=== PATIENT | female | born 1975 | race Caucasian/White ===

== ENCOUNTER 2017-07-27 13:35 | Emergency (ER) | payer OTHER ==
[~2017-07-27 13:35] MED LIST: VENL75 PO; WELL200T PO
[2017-07-27 13:46] VITALS: BP 136/65; PULSE 150; RESP 18; TEMP 98.5; O2SAT 96
--- NOTE | 2017-07-27 14:21 | PD ---
HPI Chief Complaint: Alcohol/Drug Intoxication Time Seen by Provider: 13:51 Travel History International Travel<30 days: No Contact w/Intl Traveler<30days: No Traveled to known affect area: No History of Present Illness HPI The patient is a 42-year-old female who presents emergency department family members for alcohol withdrawal. According to family members the patient has a history of alcohol abuse, has been through rehabilitation several times and has been at [facility] the past several times. Over the last several weeks the patient has been drinking a liter of vodka daily, cannot recall her last intake of alcohol, however, the family states the patient has been "shaky "and somewhat altered. The patient does admit to abusing alcohol, denies any illicit drug use. The patient is requesting Librium for her withdrawal symptoms. She does complain of diffuse abdominal pain with nausea, denies any vomiting. She denies any chest pain, shortness of breath, or fever. Symptoms are moderate. Exacerbated by history of alcohol abuse, and alleviated in the past with Librium. According to family members the patient is allergic to Antabuse, became jaundiced while taking Antabuse in the past. [facility] Past Medical History Depression: Yes Diminished Hearing: No Immunizations Current: Yes ?: Not : 2 Past Surgical History Other Surgery: Yes (BREAST AUGMENTATION) Social History Alcohol Use: Yes (etoh abuse, had 1/2 bottle of vodka today) Tobacco Use: Yes (quit 09/09) Substance Use: Yes (etoh) Allergies-Medications (Allergen,Severity, Reaction): Coded Allergies: disulfiram (Unverified Allergy, Severe, 07/27/17) paroxetine (Unverified Allergy, Unknown, 07/27/17) Reported Meds & Prescriptions Reported Meds & Active Scripts Active Active Prescriptions or Reported Medications Unobtainable Review of Systems Except as stated in HPI: all other systems reviewed are Neg General / Constitutional: No: Fever Cardiovascular: No: Chest Pain or Discomfort Respiratory: No: Shortness of Breath Gastrointestinal: Positive: Nausea, Abdominal Pain, No: Vomiting Genitourinary: No: Dysuria Musculoskeletal: No: Myalgias Psychiatric: Positive: Substance Abuse Physical Exam Narrative GENERAL: Awake, alert, 42 year-old female appears her stated age and is in no acute respiratory distress. SKIN: Focused skin assessment warm/dry. HEAD: Atraumatic. Normocephalic. EYES: Pupils equal and round. No scleral icterus. No injection or drainage. ENT: No nasal bleeding or discharge. Dry mucous membranes. NECK: Trachea midline. No JVD. CARDIOVASCULAR: Regular, tachycardic with a heart rate in the 130s. RESPIRATORY: No accessory muscle use. Clear to auscultation. Breath sounds equal bilaterally. GASTROINTESTINAL: Abdomen soft, mild tenderness, no guarding or rigidity. MUSCULOSKELETAL: No obvious deformities. No clubbing. No cyanosis. No edema. NEUROLOGICAL: Awake and alert. No obvious cranial nerve deficits. Motor grossly within normal limits. Normal speech. Nonfocal. Oriented to person and place, but not month or year. PSYCHIATRIC: Appears confused and possibly intoxicated. Data Data Last Documented VS Vital Signs Date Time Temp Pulse Resp B/P (MAP) Pulse Ox O2 Delivery O2 Flow Rate FiO2 07/27/17 14:05 16 97 Room Air 07/27/17 13:46 98.5 150 136/65 (88) Orders Orders Electrocardiogram (07/27/17 ) Complete Blood Count With Diff (07/27/17 14:15) Alcohol (Ethanol) (07/27/17 14:15) Comprehensive Metabolic Panel (07/27/17 14:15) Magnesium (Mg) (07/27/17 14:15) Act Partial Throm Time (Ptt) (07/27/17 14:15) Prothrombin Time / Inr (Pt) (07/27/17 14:15) Urinalysis - C+S If Indicated (07/27/17 14:15) Ondansetron Inj (Zofran Inj) (07/27/17 14:45) Chlordiazepoxide (Librium) (07/27/17 14:45) Sodium Chlor 0.9% 1000 Ml Inj (Ns 1000 M (07/27/17 14:45) Ed Discharge Order (07/27/17 15:26) Labs Laboratory Tests Test 07/27/17 14:15 White Blood Count 9.7 TH/MM3 Red Blood Count 5.01 MIL/MM3 Hemoglobin 14.7 GM/DL Hematocrit 45.2 % Mean Corpuscular Volume 90.1 FL Mean Corpuscular Hemoglobin 29.4 PG Mean Corpuscular Hemoglobin Concent 32.6 % Red Cell Distribution Width 14.1 % Platelet Count 353 TH/MM3 Mean Platelet Volume 8.5 FL Neutrophils (%) (Auto) 51.6 % Lymphocytes (%) (Auto) 38.7 % Monocytes (%) (Auto) 6.8 % Eosinophils (%) (Auto) 1.9 % Basophils (%) (Auto) 1.0 % Neutrophils # (Auto) 4.9 TH/MM3 Lymphocytes # (Auto) 3.8 TH/MM3 Monocytes # (Auto) 0.7 TH/MM3 Eosinophils # (Auto) 0.2 TH/MM3 Basophils # (Auto) 0.1 TH/MM3 CBC Comment DIFF FINAL Differential Comment Prothrombin Time 10.5 SEC Prothromb Time International Ratio 1.0 RATIO Activated Partial Thromboplast Time 23.9 SEC Urine Collection Type CLEAN CATCH Urine Color NONE Urine Turbidity CLEAR Urine pH 7.0 Urine Specific [place] 1.003 Urine Protein NEG mg/dL Urine Glucose (UA) NEG mg/dL Urine Ketones NEG mg/dL Urine Occult Blood SMALL Urine Nitrite NEG Urine Bilirubin NEG Urine Leukocyte Esterase NEG Urine Squamous Epithelial Cells 0-2 /hpf Microscopic Urinalysis Comment CULT NOT INDICATED Blood Urea Nitrogen 11 MG/DL Creatinine 0.89 MG/DL Random Glucose 114 MG/DL Total Protein 8.0 GM/DL Albumin 4.2 GM/DL Calcium Level 9.4 MG/DL Magnesium Level 2.1 MG/DL Alkaline Phosphatase 89 U/L Aspartate Amino Transf (AST/SGOT) 32 U/L Alanine Aminotransferase (ALT/SGPT) 22 U/L Total Bilirubin 0.3 MG/DL Sodium Level 144 MEQ/L Potassium Level 3.8 MEQ/L Chloride Level 105 MEQ/L Carbon Dioxide Level 32.1 MEQ/L Anion Gap 7 MEQ/L Estimat Glomerular Filtration Rate 69 ML/MIN Ethyl Alcohol Level 429 MG/DL [facility] Medical Decision Making Medical Screen Exam Complete: Yes Emergency Medical Condition: Yes Medical Record Reviewed: Yes Interpretation(s) EKG reveals sinus tachycardia with a heart rate of 120. No ischemic changes noted. Laboratory Tests Test 07/27/17 14:15 White Blood Count 9.7 TH/MM3 Red Blood Count 5.01 MIL/MM3 Hemoglobin 14.7 GM/DL Hematocrit 45.2 % Mean Corpuscular Volume 90.1 FL Mean Corpuscular Hemoglobin 29.4 PG Mean Corpuscular Hemoglobin Concent 32.6 % Red Cell Distribution Width 14.1 % Platelet Count 353 TH/MM3 Mean Platelet Volume 8.5 FL Neutrophils (%) (Auto) 51.6 % Lymphocytes (%) (Auto) 38.7 % Monocytes (%) (Auto) 6.8 % Eosinophils (%) (Auto) 1.9 % Basophils (%) (Auto) 1.0 % Neutrophils # (Auto) 4.9 TH/MM3 Lymphocytes # (Auto) 3.8 TH/MM3 Monocytes # (Auto) 0.7 TH/MM3 Eosinophils # (Auto) 0.2 TH/MM3 Basophils # (Auto) 0.1 TH/MM3 CBC Comment DIFF FINAL Differential Comment Prothrombin Time 10.5 SEC Prothromb Time International Ratio 1.0 RATIO Activated Partial Thromboplast Time 23.9 SEC Urine Collection Type CLEAN CATCH Urine Color NONE Urine Turbidity CLEAR Urine pH 7.0 Urine Specific [place] 1.003 Urine Protein NEG mg/dL Urine Glucose (UA) NEG mg/dL Urine Ketones NEG mg/dL Urine Occult Blood SMALL Urine Nitrite NEG Urine Bilirubin NEG Urine Leukocyte Esterase NEG Urine Squamous Epithelial Cells 0-2 /hpf Microscopic Urinalysis Comment CULT NOT INDICATED Blood Urea Nitrogen 11 MG/DL Creatinine 0.89 MG/DL Random Glucose 114 MG/DL Total Protein 8.0 GM/DL Albumin 4.2 GM/DL Calcium Level 9.4 MG/DL Magnesium Level 2.1 MG/DL Alkaline Phosphatase 89 U/L Aspartate Amino Transf (AST/SGOT) 32 U/L Alanine Aminotransferase (ALT/SGPT) 22 U/L Total Bilirubin 0.3 MG/DL Sodium Level 144 MEQ/L Potassium Level 3.8 MEQ/L Chloride Level 105 MEQ/L Carbon Dioxide Level 32.1 MEQ/L Anion Gap 7 MEQ/L Estimat Glomerular Filtration Rate 69 ML/MIN Ethyl Alcohol Level 429 MG/DL Differential Diagnosis Differential diagnosis includes alcohol withdrawal, alcohol intoxication, electrolyte abnormality, dehydration, substance abuse, inability to care for self, debility. Narrative Course IV was established, labs are drawn and sent, and the patient was placed on cardiac telemetry monitoring and continuous pulse oximetry monitoring. EKG was ordered and interpreted. The patient was administered IV fluids and Librium. CBC was unremarkable. CMP is unremarkable. UA is negative. Alcohol level was 429. The patient will be prescribed Librium, is advised if she is going to stop drinking the start Librium tonight, she is going to continue alcohol, do not take Librium. The patient was discharged with her father, who she lives with. Return if symptoms worsen or progress. Diagnosis Primary Impression: Alcohol abuse Additional Impression: Alcohol intoxication Qualified Codes: F10.920 - Alcohol use, unspecified with intoxication, uncomplicated Patient Instructions: General Instructions Additional Instructions: Medications as directed. Stop drinking alcohol. Start Librium as directed. Follow-up with a primary physician and/or Js Mcnally. Please provide a patient a copy of her labs at discharge. Med/Other Pt SpecificInfo: Prescription(s) given Scripts Chlordiazepoxide HCl (Chlordiazepoxide HCl) 25 Mg Capsule 1 TAB PO DIRECTED for Withdrawals, #20 Prov: Luis Smith MD 07/27/17 Disposition: 01 DISCHARGE HOME Condition: Stable Luis Smith MD Jul 27, 2017 14:21
[2017-07-27 14:37] LABS: AUTOMATED NEUTROPHIL # 4.9 TH/MM3 (1.8-7.7); BASOPHIL # 0.1 TH/MM3 (0-0.2); EOSINOPHIL # 0.2 TH/MM3 (0-0.4); EOSINOPHIL % 1.9 % (0.0-4.0); HEMATOCRIT 45.2 % (35.0-46.0); HEMOGLOBIN 14.7 GM/DL (11.6-15.3); LYMPH % 38.7 % (9.0-44.0); LYMPHOCYTE # 3.8 TH/MM3 (1.0-4.8); MEAN CELL VOLUME 90.1 FL (80.0-100.0); MEAN CORPUSCULAR HEMOGLOBIN 29.4 PG (27.0-34.0); MEAN CORPUSCULAR HGB CONC 32.6 % (32.0-36.0); MEAN PLATELET VOLUME 8.5 FL (7.0-11.0); MONO % 6.8 % (0.0-8.0); MONOCYTE # 0.7 TH/MM3 (0-0.9); NEUT % 51.6 % (16.0-70.0); PLATELET COUNT 353 TH/MM3 (150-450); RED BLOOD COUNT 5.01 MIL/MM3 (4.00-5.30); RED CELL DISTRIBUTION WIDTH 14.1 % (11.6-17.2); WHITE BLOOD COUNT 9.7 TH/MM3 (4.0-11.0)
[2017-07-27] MEDS ORDERED: ONDANSETRON HCL 4 MG/2 ML VIAL IV PUSH ONE (14:45)
[2017-07-27] MEDS ORDERED: SODIUM CHLOR 0.9% 1000 ML INJ 1,000 ML IV ONE (14:45)
[2017-07-27] MEDS ORDERED: chlordiazePOXIDE 25 MG CAP PO ONE (14:45)
[2017-07-27 14:47] LABS: BILIRUBIN, URINE NEG (NEG); BLOOD, URINE SMALL (NEG); GLUCOSE,URINE NEG (NEG); KETONE, URINE NEG (NEG); NITRITE,URINE NEG (NEG); URINE LEUKOCYTE ESTERASE NEG (NEG)
[2017-07-27 14:50] LABS: CHLORIDE 105 MEQ/L (98-107); SODIUM (NA) 144 MEQ/L (136-145)
[2017-07-27 14:52] LABS: SQUAMOUS EPITHELIAL CELL URINE 0-2 /hpf (0-5)
[2017-07-27 14:53] LABS: CALCIUM 9.4 MG/DL (8.5-10.1)
[2017-07-27 14:54] LABS: ALBUMIN 4.2 GM/DL (3.4-5.0); BICARBONATE 32.1 MEQ/L (21.0-32.0); BLOOD UREA NITROGEN 11 MG/DL (7-18); GLUCOSE,RANDOM 114 MG/DL (74-106); MAGNESIUM 2.1 MG/DL (1.5-2.5)
[2017-07-27 14:57] LABS: ALT (GPT) 22 U/L (10-53); AST (GOT) 32 U/L (15-37); CREATININE 0.89 MG/DL (0.50-1.00); GLOMERULAR FILTRATION RATE 69 ML/MIN (>89); PROTHROMBIN TIME - PATIENT 10.5 SEC (9.8-11.6)
[2017-07-27 14:59] LABS: TOTAL BILIRUBIN ADULT 0.3 MG/DL (0.2-1.0)
[2017-07-27 15:00] LABS: ALKALINE PHOSPHATASE 89 U/L (45-117)
[2017-07-27] MEDS ORDERED: CHLO25CA9 PO (15:29)
[2017-07-27 15:55] VITALS: BP 128/62
--- NOTE | 2017-07-28 12:43 | EKG ---
Date Performed: 07/27/2017 Time Performed: 14:31:21 PTAGE: 42 years EKG: SINUS TACHYCARDIA ABNORMAL RHYTHM ECG Since PREVIOUS TRACING , no significant change noted PREVIOUS TRACIN02/17/2016 12.52 DOCTOR: Giancarlo Manning Interpretating Date/Time 07/28/2017 12:41:01
== END 2017-07-27 15:56 | disposition home or self-care (01) ==
LOC: PHED 13:35
DX: F10.129 Alcohol abuse with intoxication, unspecified (principal); F32.9 Major depressive disorder, single episode, unspecified; Y90.8 Blood alcohol level of 240 mg/100 ml or more; Z87.891 Personal history of nicotine dependence; Z88.8 Allergy status to other drugs, medicaments and biological substances
CPT/HCPCS: 80053; 80307; 81001; 83735; 85025; 85610; 85730; 93005; 96361; 96374; 99284; J2405; J7030

== ENCOUNTER 2017-08-08 16:57 | Emergency (ER) | payer SELFPAY ==
[~2017-08-08 16:57] MED LIST changes: +CHLO25CA9 PO; -VENL75 PO; -WELL200T PO
[2017-08-08 17:37] VITALS: BP 101/62; PULSE 100; RESP 16; TEMP 98; O2SAT 98
[2017-08-08] MEDS ORDERED: LORazepam 2 MG/ML VIAL IM ONE (18:00)
[2017-08-08] MEDS ORDERED: diphenhydrAMINE HCL 50 MG/ML VIAL IM ONE (18:00)
--- NOTE | 2017-08-08 18:58 | PD ---
HPI Chief Complaint: Psychiatric Symptoms Time Seen by Provider: 18:04 Travel History International Travel<30 days: No Contact w/Intl Traveler<30days: No Traveled to known affect area: No History of Present Illness HPI 42-year-old female presents to the ED under Arrieta act for psychiatric evaluation. According to the Arrieta act the patient drank a lot of alcohol with her normal antianxiety and depressant medications. On exam the patient is uncooperative, refuses to answer questions. She states that she has not been drinking. She is combative and resistant to exam with the nurses. [facility] Past Medical History Depression: Yes Diminished Hearing: No Immunizations Current: Yes : 2 Past Surgical History Other Surgery: Yes (BREAST AUGMENTATION) Social History Alcohol Use: Yes (etoh abuse) Tobacco Use: Yes Substance Use: Yes (etoh) Allergies-Medications (Allergen,Severity, Reaction): Coded Allergies: disulfiram (Unverified Allergy, Severe, 07/27/17) paroxetine (Unverified Allergy, Unknown, 07/27/17) Reported Meds & Prescriptions Reported Meds & Active Scripts Active Chlordiazepoxide HCl 25 Mg Capsule 1 Tab PO DIRECTED Review of Systems ROS Limitations: Intoxication, Uncooperative Except as stated in HPI: all other systems reviewed are Neg Physical Exam Exam Limitations: Intoxication, Uncooperative, Combative Narrative GENERAL: Well-nourished, well-developed intoxicated, uncooperative white female in no acute distress. SKIN: Focused skin assessment warm/dry. Multiple scattered ecchymosis in various stages of healing. HEAD: Normocephalic. EYES: No scleral icterus. No injection or drainage. NECK: Supple, trachea midline. No JVD or lymphadenopathy. CARDIOVASCULAR: Regular rate and rhythm without murmurs, gallops, or rubs. RESPIRATORY: Breath sounds clear and equal bilaterally. No accessory muscle use. GASTROINTESTINAL: Abdomen soft, non-tender, nondistended. Active bowel sounds. MUSCULOSKELETAL: No cyanosis, or edema. Moves the extremities spontaneously. Walks with a normal gait. BACK: Nontender without obvious deformity. No CVA tenderness. Data Data Last Documented VS Vital Signs Date Time Temp Pulse Resp B/P (MAP) Pulse Ox O2 Delivery O2 Flow Rate FiO2 08/09/17 12:27 08/09/17 10:30 86 20 Room Air 08/09/17 06:36 99 08/08/17 19:59 98.2 Orders Orders Thyroid Stimulating Hormone (08/08/17 17:20) Psych Screen (08/08/17 17:20) Drug Screen, Random Urine (08/08/17 17:20) Alcohol (Ethanol) (08/08/17 17:20) Lorazepam Inj (Ativan Inj) (08/08/17 18:00) Diphenhydramine Inj (Benadryl Inj) (08/08/17 18:00) Haloperidol Inj (Haldol Inj) (08/08/17 19:00) Complete Blood Count With Diff (08/09/17 02:38) Comprehensive Metabolic Panel (08/09/17 02:38) Urinalysis - C+S If Indicated (08/09/17 02:38) Ed Urine Pregnancytest Poc (08/09/17 02:38) Diet Regular Basic (08/09/17 Breakfast) Alcohol Withdrawal Asmt-Ciwa Q4HX18 (08/09/17 08:15) Flumazenil Inj (Romazicon Inj) (08/09/17 08:15) Lorazepam (Ativan) (08/09/17 08:15) Lorazepam Inj (Ativan Inj) (08/09/17 08:15) Lorazepam (Ativan) (08/09/17 08:15) Lorazepam Inj (Ativan Inj) (08/09/17 08:15) Lorazepam Inj (Ativan Inj) (08/09/17 08:15) Lorazepam Inj (Ativan Inj) (08/09/17 08:15) Ed Discharge Order (08/09/17 12:15) Labs Laboratory Tests Test 08/09/17 02:35 White Blood Count 10.1 TH/MM3 Red Blood Count 4.67 MIL/MM3 Hemoglobin 14.6 GM/DL Hematocrit 42.9 % Mean Corpuscular Volume 91.8 FL Mean Corpuscular Hemoglobin 31.2 PG Mean Corpuscular Hemoglobin Concent 34.0 % Red Cell Distribution Width 14.6 % Platelet Count 315 TH/MM3 Mean Platelet Volume 8.0 FL Neutrophils (%) (Auto) 37.1 % Lymphocytes (%) (Auto) 44.4 % Monocytes (%) (Auto) 10.0 % Eosinophils (%) (Auto) 7.2 % Basophils (%) (Auto) 1.3 % Neutrophils # (Auto) 3.7 TH/MM3 Lymphocytes # (Auto) 4.5 TH/MM3 Monocytes # (Auto) 1.0 TH/MM3 Eosinophils # (Auto) 0.7 TH/MM3 Basophils # (Auto) 0.1 TH/MM3 CBC Comment DIFF FINAL Differential Comment Urine Color YELLOW Urine Turbidity CLEAR Urine pH 6.5 Urine Specific [place] 1.006 Urine Protein NEG mg/dL Urine Glucose (UA) NEG mg/dL Urine Ketones NEG mg/dL Urine Occult Blood NEG Urine Nitrite NEG Urine Bilirubin NEG Urine Urobilinogen LESS THAN 2.0 MG/DL Urine Leukocyte Esterase TRACE Urine RBC LESS THAN 1 /hpf Urine WBC 2 /hpf Urine Squamous Epithelial Cells <1 /hpf Urine Mucus FEW /lpf Microscopic Urinalysis Comment CULT NOT INDICATED Blood Urea Nitrogen 10 MG/DL Creatinine 0.99 MG/DL Random Glucose 86 MG/DL Total Protein 7.4 GM/DL Albumin 4.0 GM/DL Calcium Level 8.2 MG/DL Alkaline Phosphatase 75 U/L Aspartate Amino Transf (AST/SGOT) 55 U/L Alanine Aminotransferase (ALT/SGPT) 31 U/L Total Bilirubin 0.4 MG/DL Sodium Level 144 MEQ/L Potassium Level 3.7 MEQ/L Chloride Level 106 MEQ/L Carbon Dioxide Level 32.0 MEQ/L Anion Gap 6 MEQ/L Estimat Glomerular Filtration Rate 61 ML/MIN Thyroid Stimulating Hormone 3rd Gen 0.447 uIU/ML Urine Opiates Screen NEG Urine Barbiturates Screen NEG Urine Amphetamines Screen NEG Urine Benzodiazepines Screen POS Urine Cocaine Screen NEG Urine Cannabinoids Screen NEG Ethyl Alcohol Level 206 MG/DL MDM Medical Decision Making Medical Screen Exam Complete: Yes Emergency Medical Condition: Yes Differential Diagnosis Acute alcohol intoxication versus substance induced mood disorder versus Adjustment disorder versus anxiety versus bipolar versus depression versus dementia versus electrolyte disorder versus malingering versus mood disorder versus ODD versus psychosis versus PTSD versus schizophrenia versus schizoaffective disorder versus substance-induced mood disorder versus other Narrative Course 42-year-old female presents to the ED under Arrieta act for psychiatric evaluation. According to the Arrieta act the patient drank a lot of alcohol with her normal antianxiety and depressant medications. On exam the patient is uncooperative, refuses to answer questions. She states that she has not been drinking. She is combative and resistant to exam with the nurses. She attempted to leave the ED multiple times. She was placed in restraints and administered IM Benadryl and Ativan. After approximately one hour patient was still combative with any attempts to communicate. She was administered IM Haldol. Exam is reassuring. Review of the record reveals patient was evaluated yesterday and had a full workup. Patient is medically clear for psychiatric evaluation. Ana Guthrie Aug 08, 2017 18:58
[2017-08-08] MEDS ORDERED: HALOPERIDOL LACTATE 5 MG/ML AMP IM ONE (19:00)
[2017-08-08 19:59] VITALS: BP 101/64; PULSE 94; RESP 22; TEMP 98.2; O2SAT 95
[2017-08-09 02:18] VITALS: BP 111/74; PULSE 102; RESP 18
[2017-08-09 03:09] LABS: AUTOMATED NEUTROPHIL # 3.7 TH/MM3 (1.8-7.7); BASOPHIL # 0.1 TH/MM3 (0-0.2); BASOPHIL % 1.3 % (0.0-2.0); EOSINOPHIL # 0.7 TH/MM3 (0-0.4); EOSINOPHIL % 7.2 % (0.0-4.0); HEMATOCRIT 42.9 % (35.0-46.0); HEMOGLOBIN 14.6 GM/DL (11.6-15.3); LYMPH % 44.4 % (9.0-44.0); LYMPHOCYTE # 4.5 TH/MM3 (1.0-4.8); MEAN CELL VOLUME 91.8 FL (80.0-100.0); MEAN CORPUSCULAR HEMOGLOBIN 31.2 PG (27.0-34.0); NEUT % 37.1 % (16.0-70.0); PLATELET COUNT 315 TH/MM3 (150-450); RED BLOOD COUNT 4.67 MIL/MM3 (4.00-5.30); RED CELL DISTRIBUTION WIDTH 14.6 % (11.6-17.2); WHITE BLOOD COUNT 10.1 TH/MM3 (4.0-11.0)
[2017-08-09 03:15] LABS: BILIRUBIN, URINE NEG (NEG); BLOOD, URINE NEG (NEG); GLUCOSE,URINE NEG (NEG); KETONE, URINE NEG (NEG); MUCUS URINE FEW /lpf (OCC); NITRITE,URINE NEG (NEG); PH, URINE 6.5 (5.0-8.5); SQUAMOUS EPITHELIAL CELL URINE <1 /hpf (0-5); URINE COLOR YELLOW (YELLW/STRAW); URINE LEUKOCYTE ESTERASE TRACE (NEG)
[2017-08-09 03:27] LABS: ALT (GPT) 31 U/L (10-53); AST (GOT) 55 U/L (15-37); BLOOD UREA NITROGEN 10 MG/DL (7-18); CALCIUM 8.2 MG/DL (8.5-10.1); CHLORIDE 106 MEQ/L (98-107); CREATININE 0.99 MG/DL (0.50-1.00); GLOMERULAR FILTRATION RATE 61 ML/MIN (>89); GLUCOSE,RANDOM 86 MG/DL (74-106); SODIUM (NA) 144 MEQ/L (136-145)
[2017-08-09 03:43] LABS: ALKALINE PHOSPHATASE 75 U/L (45-117); TOTAL BILIRUBIN ADULT 0.4 MG/DL (0.2-1.0); TOTAL PROTEIN 7.4 GM/DL (6.4-8.2)
[2017-08-09 06:36] VITALS: BP 103/57; PULSE 85; RESP 16; O2SAT 99
[2017-08-09] MEDS ORDERED: LORazepam 2 MG/ML VIAL IV PUSH PRN ×4 (08:15)
[2017-08-09] MEDS ORDERED: LORazepam 2 MG TAB PO PRN (08:15)
[2017-08-09] MEDS ORDERED: FLUMAZENIL 0.5 MG/5 ML VIAL IV PUSH PRN (08:15)
[2017-08-09] MEDS ORDERED: LORazepam 1 MG TAB PO PRN (08:15)
[2017-08-09 10:30] VITALS: BP 97/57; PULSE 86; RESP 20
--- NOTE | 2017-08-09 12:16 | PD ---
Data Data Last Documented VS Vital Signs Date Time Temp Pulse Resp B/P (MAP) Pulse Ox O2 Delivery O2 Flow Rate FiO2 08/09/17 10:30 86 20 97/57 (70) Room Air 08/09/17 06:36 99 08/08/17 19:59 98.2 Orders Orders Thyroid Stimulating Hormone (08/08/17 17:20) Psych Screen (08/08/17 17:20) Drug Screen, Random Urine (08/08/17 17:20) Alcohol (Ethanol) (08/08/17 17:20) Lorazepam Inj (Ativan Inj) (08/08/17 18:00) Diphenhydramine Inj (Benadryl Inj) (08/08/17 18:00) Haloperidol Inj (Haldol Inj) (08/08/17 19:00) Complete Blood Count With Diff (08/09/17 02:38) Comprehensive Metabolic Panel (08/09/17 02:38) Urinalysis - C+S If Indicated (08/09/17 02:38) Ed Urine Pregnancytest Poc (08/09/17 02:38) Diet Regular Basic (08/09/17 Breakfast) Alcohol Withdrawal Asmt-Ciwa Q4HX18 (08/09/17 08:15) Flumazenil Inj (Romazicon Inj) (08/09/17 08:15) Lorazepam (Ativan) (08/09/17 08:15) Lorazepam Inj (Ativan Inj) (08/09/17 08:15) Lorazepam (Ativan) (08/09/17 08:15) Lorazepam Inj (Ativan Inj) (08/09/17 08:15) Lorazepam Inj (Ativan Inj) (08/09/17 08:15) Lorazepam Inj (Ativan Inj) (08/09/17 08:15) Diet Regular Basic (08/09/17 Lunch) Ed Discharge Order (08/09/17 12:15) Labs Laboratory Tests Test 08/09/17 02:35 White Blood Count 10.1 TH/MM3 Red Blood Count 4.67 MIL/MM3 Hemoglobin 14.6 GM/DL Hematocrit 42.9 % Mean Corpuscular Volume 91.8 FL Mean Corpuscular Hemoglobin 31.2 PG Mean Corpuscular Hemoglobin Concent 34.0 % Red Cell Distribution Width 14.6 % Platelet Count 315 TH/MM3 Mean Platelet Volume 8.0 FL Neutrophils (%) (Auto) 37.1 % Lymphocytes (%) (Auto) 44.4 % Monocytes (%) (Auto) 10.0 % Eosinophils (%) (Auto) 7.2 % Basophils (%) (Auto) 1.3 % Neutrophils # (Auto) 3.7 TH/MM3 Lymphocytes # (Auto) 4.5 TH/MM3 Monocytes # (Auto) 1.0 TH/MM3 Eosinophils # (Auto) 0.7 TH/MM3 Basophils # (Auto) 0.1 TH/MM3 CBC Comment DIFF FINAL Differential Comment Urine Color YELLOW Urine Turbidity CLEAR Urine pH 6.5 Urine Specific [place] 1.006 Urine Protein NEG mg/dL Urine Glucose (UA) NEG mg/dL Urine Ketones NEG mg/dL Urine Occult Blood NEG Urine Nitrite NEG Urine Bilirubin NEG Urine Urobilinogen LESS THAN 2.0 MG/DL Urine Leukocyte Esterase TRACE Urine RBC LESS THAN 1 /hpf Urine WBC 2 /hpf Urine Squamous Epithelial Cells <1 /hpf Urine Mucus FEW /lpf Microscopic Urinalysis Comment CULT NOT INDICATED Blood Urea Nitrogen 10 MG/DL Creatinine 0.99 MG/DL Random Glucose 86 MG/DL Total Protein 7.4 GM/DL Albumin 4.0 GM/DL Calcium Level 8.2 MG/DL Alkaline Phosphatase 75 U/L Aspartate Amino Transf (AST/SGOT) 55 U/L Alanine Aminotransferase (ALT/SGPT) 31 U/L Total Bilirubin 0.4 MG/DL Sodium Level 144 MEQ/L Potassium Level 3.7 MEQ/L Chloride Level 106 MEQ/L Carbon Dioxide Level 32.0 MEQ/L Anion Gap 6 MEQ/L Estimat Glomerular Filtration Rate 61 ML/MIN Thyroid Stimulating Hormone 3rd Gen 0.447 uIU/ML Urine Opiates Screen NEG Urine Barbiturates Screen NEG Urine Amphetamines Screen NEG Urine Benzodiazepines Screen POS Urine Cocaine Screen NEG Urine Cannabinoids Screen NEG Ethyl Alcohol Level 206 MG/DL MDM Supervised Visit with YASHIRA: No Narrative Course Patient medically clear, seen by psychiatry, recommend outpatient follow-up with Js Mcnally. Diagnosis Primary Impression: Psychiatric complaint Referrals: [facility] day Patient Instructions: General Instructions Med/Other Pt SpecificInfo: No Change to Meds Disposition: 01 DISCHARGE HOME Condition: Stable Adam Pimentel MD Aug 09, 2017 12:16
--- NOTE | 2017-08-09 12:22 | PD ---
History of Present Illness Chief Complaint: Psychiatric Symptoms Time Seen by Provider: 12:00 Travel History International Travel<30 Days: No Contact w/Intl Traveler<30days: No Known affected area: No Legal Status Legal Status: Arrieta Act Arrieta Act Signed By: Carolyn Osorio History of Present Illness: History of Present Illness HPI 42-year-old female with history of alcohol abuse, social anxiety disorder, who presents to the ED under Arireta act for psychiatric evaluation. The Arrieta act alleges that the patient drank a lot of alcohol with her normal antianxiety and depressant medications. On exam the patient is uncooperative, refuses to answer questions. Her blood alcohol level upon arrival to the ED was 206. She is combative and resistant to exam with the nurses on upon initial presentation. She was allowed to sober up clinically in supervised environment. She presented no suicidality. Electronic medical record is review. The patient has been seen several other times in her ED for alcohol related issues. Patient seen. Sangeetha GRANDE and Silver RIVERA present during evaluation. The patient is clinically sober. He is alert, oriented, speech is clear and logical and goal-directed. There is no evidence of any psychosis, no kodi or hypomania. The patient is remorseful about her continuing use of alcohol. She admits that she was intoxicated at the time of the Arrieta act was placed. She has been unable to maintain sobriety despite several previous rehabilitation encounters. She denies any suicidal or homicidal ideation, intent or plan. She states "I will never try to harm myself." She is future oriented and is concerned about her relationship with her boyfriend secondary to her continued drinking. [facility] Past Medical History Depression: Yes Diabetes: No Patient Takes Glucophage: No Diminished Hearing: No Immunizations Current: Yes ?: Unknown : 2 Past Surgical History Other Surgery: Yes (BREAST AUGMENTATION) Psychiatric History Psychiatric History Hx Psychiatric Treatment: States that she has a therapist, Dr.Kim Feliz and a psychiatrist who she called . Currently not under psychiatric care History of Inpatient Treatment: No Guns or firearms in home: No Social History Single, never who lives in [place]. She is staying here with her father and her brother. Patient is currently unemployed. Hx Alcohol Use: Yes (etoh abuse) Hx Tobacco Use: Yes Hx Substance Use: Yes (ALCOHOL) Substance Use Type: Alcohol Hx of Substance Use Treatment: Yes (several recent admissions to rehabilitation facilities out of state.) Family Psychiatric History Negative Allergies-Medications (Allergen,Severity, Reaction): Coded Allergies: disulfiram (Unverified Allergy, Severe, 07/27/17) paroxetine (Unverified Allergy, Unknown, 07/27/17) Reported Meds & Prescriptions Reported Meds & Active Scripts Active Chlordiazepoxide HCl 25 Mg Capsule 1 Tab PO DIRECTED Review of Systems Psychiatric: DENIES: Anxiety, Confusion, Mood changes, Depression, Hallucinations, Agitation, Suicidal Ideation, Homicidal Ideation, Delusions Except as stated in HPI: all other systems reviewed are Neg Mental Status Examination Appearance: Appropriate ([facility] maintaining basic hygiene) Consciousness: Alert Orientation: x4 Speech: Unremarkable Language: Adequate Fund of Knowledge: Adequate Attention and Concentration: Adequate Memory: Unremarkable Mood: Sad, Anxious Affect: Appropriate, Other (tearful at times) Thought Process & Associations: Intact, Logical, Goal directed Thought Content: Appropriate Hallucination Type: None Delusion Type: None Suicidal Ideation: No Suicidal Plan: No Suicidal Intention: No Homicidal Ideation: No Homicidal Plan: No Homicidal Intention: No Insight: Fair Judgment: Adequate MDM Medical Decision Making Medical Record Reviewed: Yes Assessment/Plan 42-year-old female presents to the ED under Arrieta act for psychiatric evaluation. Patient with a history of alcohol dependence who reports binge drinking at least 1 pint every several weeks. Her blood alcohol level upon arrival to the ED was 206. The patient was allowed to sober up clinically. She presented no behavioral concerns and no suicidality. The patient admits to her continued use of alcohol and her inability to engage in a recovery program. She denies any suicidal homicidal ideation, intent or plan. The patient will be provided information for substance abuse treatment here in [facility] although she is on short if she will be staying here or returning back home. She is provided psychoeducation. BA is lifted. Psychiatrically clear for discharge from the ED. Orders Orders Thyroid Stimulating Hormone (08/08/17 17:20) Psych Screen (08/08/17 17:20) Drug Screen, Random Urine (08/08/17 17:20) Alcohol (Ethanol) (08/08/17 17:20) Lorazepam Inj (Ativan Inj) (08/08/17 18:00) Diphenhydramine Inj (Benadryl Inj) (08/08/17 18:00) Haloperidol Inj (Haldol Inj) (08/08/17 19:00) Complete Blood Count With Diff (08/09/17 02:38) Comprehensive Metabolic Panel (08/09/17 02:38) Urinalysis - C+S If Indicated (08/09/17 02:38) Ed Urine Pregnancytest Poc (08/09/17 02:38) Diet Regular Basic (08/09/17 Breakfast) Alcohol Withdrawal Asmt-Ciwa [id number] (08/09/17 08:15) Flumazenil Inj (Romazicon Inj) (08/09/17 08:15) Lorazepam (Ativan) (08/09/17 08:15) Lorazepam Inj (Ativan Inj) (08/09/17 08:15) Lorazepam (Ativan) (08/09/17 08:15) Lorazepam Inj (Ativan Inj) (08/09/17 08:15) Lorazepam Inj (Ativan Inj) (08/09/17 08:15) Lorazepam Inj (Ativan Inj) (08/09/17 08:15) Diet Regular Basic (08/09/17 Lunch) Ed Discharge Order (08/09/17 12:15) Results Vital Signs Date Time Temp Pulse Resp B/P (MAP) Pulse Ox O2 Delivery O2 Flow Rate FiO2 08/09/17 10:30 86 20 97/57 (70) Room Air 08/09/17 06:36 85 16 103/57 (72) 99 Room Air 08/09/17 02:18 102 18 111/74 (86) Room Air 08/08/17 19:59 98.2 94 22 101/64 (76) 95 Room Air 08/08/17 17:37 98.0 100 16 101/62 (75) 98 Laboratory Tests Test 08/09/17 02:35 White Blood Count 10.1 Red Blood Count 4.67 Hemoglobin 14.6 Hematocrit 42.9 Mean Corpuscular Volume 91.8 Mean Corpuscular Hemoglobin 31.2 Mean Corpuscular Hemoglobin Concent 34.0 Red Cell Distribution Width 14.6 Platelet Count 315 Mean Platelet Volume 8.0 Neutrophils (%) (Auto) 37.1 Lymphocytes (%) (Auto) 44.4 Monocytes (%) (Auto) 10.0 Eosinophils (%) (Auto) 7.2 Basophils (%) (Auto) 1.3 Neutrophils # (Auto) 3.7 Lymphocytes # (Auto) 4.5 Monocytes # (Auto) 1.0 Eosinophils # (Auto) 0.7 Basophils # (Auto) 0.1 CBC Comment DIFF FINAL Differential Comment Urine Color YELLOW Urine Turbidity CLEAR Urine pH 6.5 Urine Specific [place] 1.006 Urine Protein NEG Urine Glucose (UA) NEG Urine Ketones NEG Urine Occult Blood NEG Urine Nitrite NEG Urine Bilirubin NEG Urine Urobilinogen LESS THAN 2.0 Urine Leukocyte Esterase TRACE Urine RBC LESS THAN 1 Urine WBC 2 Urine Squamous Epithelial Cells <1 Urine Mucus FEW Microscopic Urinalysis Comment CULT NOT INDICATED Blood Urea Nitrogen 10 Creatinine 0.99 Random Glucose 86 Total Protein 7.4 Albumin 4.0 Calcium Level 8.2 Alkaline Phosphatase 75 Aspartate Amino Transf (AST/SGOT) 55 Alanine Aminotransferase (ALT/SGPT) 31 Total Bilirubin 0.4 Sodium Level 144 Potassium Level 3.7 Chloride Level 106 Carbon Dioxide Level 32.0 Anion Gap 6 Estimat Glomerular Filtration Rate 61 Thyroid Stimulating Hormone 3rd Gen 0.447 Urine Opiates Screen NEG Urine Barbiturates Screen NEG Urine Amphetamines Screen NEG Urine Benzodiazepines Screen POS Urine Cocaine Screen NEG Urine Cannabinoids Screen NEG Ethyl Alcohol Level 206 Diagnosis Primary Impression: Psychiatric complaint Additional Impression: Alcohol dependence with acute alcoholic intoxication without complication Psychiatrically Cleared: Yes Referrals: [facility] day Departure Forms: Tests/Procedures Patient Instructions: General Instructions, Abuse of Alcohol (ED), Alcohol Use Disorder (ED) Med/ Other Pt Specific Info: No Change to Meds Disposition: 01 DISCHARGE HOME Condition: Stable Problem Qualifiers Bernadette Vuong Aug 09, 2017 12:21
== END 2017-08-09 12:33 | disposition home or self-care (01) ==
LOC: NEDAMB 16:57 → NEPJ 08-09 12:33
DX: F10.220 Alcohol dependence with intoxication, uncomplicated (principal); Y90.7 Blood alcohol level of 200-239 mg/100 ml; F32.9 Major depressive disorder, single episode, unspecified; Z72.0 Tobacco use
CPT/HCPCS: 80053; 80307; 81001; 84443; 84703; 85025; 96372; 99283; J1200; J1630; J2060